=== PATIENT | female | born 1975 | race African-American/Black ===

== ENCOUNTER 2018-10-19 22:05 | Emergency (ER) | payer OTHER ==
[~2018-10-19] VITALS: Ht 167.6 cm; Wt 72.6 kg
[2018-10-19] MEDS ORDERED: NKM (22:34)
--- NOTE | 2018-10-19 22:51 | NUR ---
ED Nurse Note: pt came to ed c/o of cough x2 weeks with phlegm per pt she has been taking mucinex
[2018-10-19 22:53] VITALS: BP 123/80
[2018-10-19] MEDS ORDERED: ZITHROMAX250 MG ORAL (23:23)
[2018-10-19] MEDS ORDERED: ALBUTEROL SULF8.5 GM INH (23:23)
--- NOTE | 2018-10-19 23:23 | Emergency Room Report ---
History of Present Illness General Chief Complaint: Upper Respiratory Illness Source: Patient Present Illness HPI This is a 43-year-old female with no past medical history. She presents with chief complaint of shortness of breath and congestion. She had a cold for the last 2 weeks and seemed to be stuck in her lungs now. Worse with deep inspiration. Worse with lying flat. No fever chills but no nausea no vomiting. Denies any other complaint. No history of Asthma. Allergies: Coded Allergies: No Known Allergies (Unverified , 10/19/18) Patient History Past Medical History: see triage record, old chart reviewed Past Surgical History: none Pertinent Family History: none Social History: Denies: smoking Last Menstrual Period: october Now: No : 0 Immunizations: other Reviewed Nursing Documentation: PMH: Agreed; PSxH: Agreed Nursing Documentation-PMH Past Medical History: No Stated History Review of Systems Eye: Denies: eye pain, blurred vision ENT: Denies: ear pain, nose congestion, throat swelling Respiratory: Reports: cough, shortness of breath Cardiovascular: Denies: chest pain, palpitations Gastrointestinal: Denies: abdominal pain, diarrhea, nausea, vomiting Musculoskeletal: Denies: back pain, joint pain Skin: Denies: rash Neurological: Denies: headache, numbness Endocrine: Denies: increased thirst, increased urine Hematologic/Lymphatic: Denies: easy bruising All Other Systems: negative except mentioned in HPI Physical Exam Vital Signs Date Time Temp Pulse Resp B/P (MAP) Pulse Ox O2 Delivery O2 Flow Rate FiO2 10/19/18 22:31 98.2 79 16 123/80 100 Room Air vitals normal Sp02 EP Interpretation: reviewed, normal General Appearance: well appearing, no apparent distress, alert Head: normocephalic, atraumatic Eyes: bilateral eye PERRL, bilateral eye EOMI ENT: hearing grossly normal, normal pharynx Neck: full range of motion, supple, no meningismus Respiratory: chest non-tender, lungs clear, normal breath sounds Cardiovascular #1: regular rate, rhythm, no murmur Gastrointestinal: normal bowel sounds, non tender, no mass, no organomegaly, no bruit, non-distended Musculoskeletal: back normal, gait/station normal, normal range of motion Psychiatric: mood/affect normal Skin: warm/dry Medical Decision Making Diagnostic Impression: Primary Impression: Upper respiratory infection Qualified Codes: J06.9 - Acute upper respiratory infection, unspecified ER Course Patient presents with upper respiratory infection. Most likely viral. Since his been ongoing for 2 weeks, could be secondary atypical pneumonia. We'll put on antibiotics. Last Vital Signs Date Time Temp Pulse Resp B/P (MAP) Pulse Ox O2 Delivery O2 Flow Rate FiO2 10/19/18 22:53 98.2 86 16 123/80 100 Room Air Status: unchanged Disposition: HOME, SELF-CARE Condition: Stable Scripts Azithromycin* (ZITHROMAX*) 250 Mg Tablet 250 MG ORAL DAILY, #6 TAB 0 Refills Take two tables once daily for 1 day, then one tablet once daily for 4 days. Prov: Yasmani Miller MD 10/19/18 Albuterol Sulfate* (ALBUTEROL SULFATE MDI*) 8.5 Gm Hfa.aer.ad 2 PUFF INH Q4H PRN for cough/wheezing, #1 EA 0 Refills Prov: Yasmani Miller MD 10/19/18 Patient Instructions: Upper Respiratory Infection, Adult Additional Instructions: Follow-up with your Dr. in 7 days. Return if symptom worsen. Yasmani Miller MD Oct 19, 2018 23:23
--- NOTE | 2018-10-19 23:33 | NUR ---
ER DISCHARGE NOTE: Patient is cleared to be discharged per ERMD, pt is aox4, on room air, with stable vital signs. pt was given dc and prescription instructions, pt was able to verbalize understanding, pt id band remvoed . pt is able to ambulate with steady gait. pt took all belongings.
[2018-10-19 23:35] VITALS: BP 123/80
== END 2018-10-19 23:33 | disposition home or self-care (01) ==
LOC: EMR 23:30
DX: J06.9 Acute upper respiratory infection, unspecified (principal)
CPT/HCPCS: 99282